=== PATIENT | female | born 1950 | race Asian ===

== ENCOUNTER 2019-02-10 06:50 | Emergency (ER) | payer OTHER ==
[~2019-02-10] VITALS: Ht 157.5 cm; Wt 54.4 kg
[2019-02-10 07:14] VITALS: BP_SYST 167
--- NOTE | 2019-02-10 07:24 | NUR ---
Patient to ER bed 8 to gown for evaluation. Side rails up. Report given to Shelley PALOMINO.
[2019-02-10] MEDS ORDERED: NACL 0.9% 1,000 ML IV ONE (07:30)
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
--- NOTE | 2019-02-10 07:40 | NUR ---
EKG performed at by GEORGETTE Gamble. Physician given copy of EKG for review.
--- NOTE | 2019-02-10 07:40 | NUR ---
ER at bedside examining patient.
--- NOTE | 2019-02-10 07:50 | NUR ---
Medicated per MD orders. IVF infusing with no s/s of infiltration at this time. Will cont to monitor
--- NOTE | 2019-02-10 07:50 | NUR ---
#20 gauge angiocath placed to R AC. Use of asceptic technique. Opsite placed over site. Blood return noted. Blood for lab drawn from site. Flushed with 10 cc of normal saline. No evidence of infiltration noted. Patient tolerated well.
[2019-02-10 07:54] LABS: BILIRUBIN,URINE NEGATIVE (NEGATIVE); BLOOD, URINE TRACE (NEGATIVE); CLARITY/URINE CLEAR (CLEAR); COLOR,URINE YELLOW (YELLOW); GLUCOSE,URINE NEGATIVE (NEGATIVE); KETONES,URINE NEGATIVE (NEGATIVE); LEUKOCYTE ESTERASE ,URINE TRACE (NEGATIVE); NITRITE, URINE NEGATIVE (NEGATIVE); PROTEIN URINE NEGATIVE (NEGATIVE); UROBILINOGEN,URINE 0.2 (0.2-1.0)
[2019-02-10 08:02] LABS: BACTERIA,URINE FEW /HPF (None Seen)
[2019-02-10 08:12] LABS: BASOPHILS # (AUTO) 0.1 K/uL (0.0-0.2); EOSINOPHILS # (AUTO) 0.1 K/uL (0.0-0.4); HEMATOCRIT 40.7 % (36-48); HEMOGLOBIN 13.6 g/dL (12.0-16.0); LYMPHOCYTES # (AUTO) 1.4 K/uL (1.0-5.5); LYMPHOCYTES % (AUTO) 21.9 % (20.5-51.5); MEAN CORPUSCULAR HEMOGLOBIN 33 pg (27-31); MEAN CORPUSCULAR HGB CONC 34 % (32-36); MEAN CORPUSCULAR VOLUME 97 fL (79.0-98.0); MONOCYTES # (AUTO) 0.3 K/uL (0.0-1.0); NEUTROPHILS # (AUTO) 4.7 K/uL (1.8-7.7); NEUTROPHILS % (AUTO) 71.1 % (40.0-70.0); PLATELET COUNT (AUTO) 321 K/uL (130-430); RED BLOOD CELL COUNT(AUTO) 4.19 MIL/uL (4.2-6.2); RED CELL DISTRIBUTION WIDTH 13.1 % (9.0-15.0); WHITE BLOOD COUNT (AUTO) 6.6 K/uL (4.8-10.8)
[2019-02-10 08:19] LABS: CALCIUM 9.1 mg/dL (8.4-11.0); CREATININE 0.57 mg/dL (0.55-1.30)
[2019-02-10 08:25] LABS: ALBUMIN 3.7 g/dL (3.4-4.8); TOTAL BILIRUBIN 0.7 mg/dL (0.0-1.0)
[2019-02-10 08:36] LABS: PROTHROMBIN TIME 9.6 SECS (9.5-12.5)
--- NOTE | 2019-02-10 08:50 | NUR ---
Dr. Porter is speaking w/ the pt's sons at the bedside.
[2019-02-10] MEDS ORDERED: levETIRAcetam 1,000 MG IV BAG 100 ML IV ONE (09:00)
--- NOTE | 2019-02-10 09:00 | NUR ---
Swallow eval Pt states she is able to drink and eat without a problem. Unable to perform a swallow eval at the bedside. Pt has to be NPO for possible surgery.
--- NOTE | 2019-02-10 09:39 | NUR ---
Patient to be transferred to [facility] ER. Is being transferred due to higher level of care. Receiving facility has accepting physician and available space. ER physician has signed transfer form. Patient or responsible alliance party has agreed to transfer and signed form. Patient belongings inventoried and will be sent with patient. Copy of nursing notes, lab reports, EKG, Physicians Orders and X-rays to be sent with patient. Report called to Alphonse at receiving facility. Receiving physician is Dr. Umana. [facility] ambulance service has been called for transfer. Iv is on the 20g RAC patent and infusing well.
[2019-02-10 09:42] VITALS: BP_SYST 153
== END 2019-02-10 09:36 | disposition short-term general hospital (02) ==
LOC: SED 06:50
DX: I62.01 Nontraumatic acute subdural hemorrhage (principal)
CPT/HCPCS: 36415; 70450; 71045; 80053; 81000; 83605; 84484; 85025; 85610; 85730; 87040; 93005; 96365; 99291; J1953; J7030